=== PATIENT | male | born 1950 | race Hispanic/Latino ===

== ENCOUNTER 2017-02-15 10:40 | Day surgery (SDC) | payer MEDICAID ==
[2017-02-12 07:01] VITALS: BMI 26.2
[2017-02-15] MEDS ORDERED: Midazolam 2 MG/2 ML VIAL ONE (12:43)
[2017-02-15] MEDS ORDERED: Propofol 10 mg/ml Inj (20 ML) ONE (12:43)
[2017-02-15] MEDS ORDERED: Lidocaine Hydrochloride 5 ML INJ ONE (12:54)
[2017-02-15] MEDS ORDERED: Lidocaine 2% Jelly (Uro-Jet) ONE (12:59)
[2017-02-15] MEDS ORDERED: Ciprofloxacin 400mg/200ml D5W 400 MG/200 ML BAG IVPB ONE (12:59)
[2017-02-15] MEDS ORDERED: Lactated Ringer's 1,000 ML IV ONE (13:05)
[2017-02-15] MEDS ORDERED: HYDROmorphone 0.5 mg/0.5 ml ISec IVP PRN (13:06)
[2017-02-15] MEDS ORDERED: Gentamicin 160 MG in Sodium Chloride 0.9% 100 ML IVPB ONE (13:15)
--- NOTE | 2017-02-15 14:30 | PCM.SURG1 ---
Surgeon's Initial Post Op Note - Surgeon's Notes Surgeon: Deborah Young Adult Librarian: pool Type of Anesthesia: General LMA Anesthesia Administered By: staff Pre-Operative Diagnosis: BPH/COLLADO Operative Findings: SAME Post-Operative Diagnosis: SAME Operation Performed: TULAP Specimen/Specimens Removed: NA Estimated Blood Loss: EBL {In ML}: 0 Blood Products Given: N/A Drains Used: No Drains Post-Op Condition: Good Date of Surgery/Procedure: 02/15/17 Time of Surgery/Procedure: 14:43
[2017-02-15 16:10] VITALS: BP 137/80; PULSE 78; RESP 20; TEMP 98; O2SAT 100
--- NOTE | 2017-02-16 01:32 | OP ---
PROCEDURE DATE: 02/15/2017 PREOPERATIVE DIAGNOSIS: Benign prostatic hypertrophy with bladder outlet obstruction. POSTOPERATIVE DIAGNOSIS: Benign prostatic hypertrophy with bladder outlet obstruction. PROCEDURE: Transurethral laser ablation of the prostate. FINDINGS: Trilobar hypertrophy of the prostate with significant remaining prostatic tissue causing bladder outlet obstruction. DESCRIPTION OF PROCEDURE: Prior to the procedure, a detailed informed consent was obtained from the patient after a full explanation of risks, complications, limitations, and alternatives to GreenLight laser prostatectomy. The patient was willing to accept the risks, signed the consent, and was brought into the room. Received prophylactic antibiotics and time-out was taken according to the rules and regulations of [facility], and the laser cystoscope was inserted into the penis and passed through the urethra. The pendulous urethra was normal. The membranous urethra was normal. The prostatic urethra showed significant lateral lobe encroachment. There was evidence of some resection, but appeared to be significant re-growth of tissue. The bladder was entered atraumatically. There were no urothelial tumors or stones. It was elected to proceed with GreenLight laser. The working element was inserted into the scope and the laser fiber was inserted in the working element, and vaporization of the prostate was begun from the bladder just distal to the bladder neck to just proximal to the verumontanum, vaporizing all obstructing tissue, both left, right, roof tissue and the base tissue. The patient tolerated this procedure very well. There was no bleeding. The bladder was filled. The scope was removed. A #22 5 mL catheter was inserted. The patient was sent to the recovery room in good condition, where he was given a full explanation of postoperative management and followup. Carlos Hernandez MD
== END 2017-02-15 16:14 | disposition home or self-care (01) ==
LOC: C.SDS 10:40
PROVIDERS: ATTEND Urology
DX: N32.0 Bladder-neck obstruction (principal); N40.1 Benign prostatic hyperplasia with lower urinary tract symptoms; N13.8 Other obstructive and reflux uropathy
CPT/HCPCS: 52648; A4358; J0744; J7120